=== PATIENT | female | born 1935 | race Caucasian/White ===

== ENCOUNTER 2020-03-08 08:58 | Emergency (ER) | payer MEDICARE, BC ==
[~2020-03-08] VITALS: Ht 149.9 cm; Wt 67.6 kg
--- NOTE | 2020-03-08 09:07 | Emergency Department Note ---
History of Present Illnes History of Present Illness History of Present Illness This is a 84 year old female with L LE swelling. Newly treated for Lung CA , patient reports having increasing swelling. Denies CP or SOB. Remote h/o of DVT with chronic L LE swelling. Historian: Patient Arrival Mode: Car Onset (how long ago): week(s) Location: L LE Radiation: Reports extremity Severity: moderate Onset quality: gradual Duration (how long): week(s) (1) Timing of current episode: constant Progression: worsening Context: Reports hx of DVT/PE; Denies recent illness, Denies recent surgery, Denies recent immobilization, Denies recent travel, Denies trauma/injury, Denies new medications, Denies non- compliance w/ medications, Denies other Relieving factors: none Exacerbating factors: none Associated symptoms: Denies denies other symptoms, Denies confusion, Denies chest pain, Denies cough, Denies diaphoresis, Denies fever/chills, Denies headaches, Denies loss of appetite, Denies malaise, Denies nausea/vomiting, Denies rash, Denies seizure, Denies shortness of breath, Denies syncope, Denies weakness, Denies other Treatments prior to arrival: none Past Medical/Family History Physician Review I have reviewed the patient's past medical and family history. Any updates have been documented here. Past Medical History Recent Fever: No Clinical Suspicion of Infectio: No New/Unexplained Change in Ment: No Other Medical History: Lung CA DVT Social History Smoking Cessation: Never Smoker Alcohol Use: None Any Illegal Drug Use: No Review of Systems Review of Systems Constitutional: Reports no symptoms EENTM: Reports no symptoms Cardiovascular: Reports no symptoms Respiratory: Reports no symptoms Gastrointestinal: Reports no symptoms Genitourinary: Reports no symptoms Musculoskeletal: Reports muscle pain Integumentary: Reports no symptoms Neurological: Reports no symptoms Psychological: Reports no symptoms Endocrine: Reports no symptoms Hematological/Lymphatic: Reports no symptoms Physical Exam Related Data Allergies: Coded Allergies: Iodine and Iodide Containing Produc (Verified Allergy, Severe, 03/08/20) codeine (Verified Allergy, Unknown, 03/08/20) morphine (Verified Allergy, Unknown, 03/08/20) Vital signs reviewed: Yes Physical Exam CONSTITUTIONAL Constitutional: Present well-developed, Present well-nourished HENT HENT: Present normocephalic, Present atraumatic, Present oropharynx clear/moist, Present nose normal HENT L/R: Present left ext ear normal, Present right ext ear normal EYES Eyes: Reports PERRL, Reports conjunctivae normal NECK Neck: Present ROM normal PULMONARY Pulmonary: Present effort normal, Present breath sounds normal CARDIOVASCULAR Cardiovascular: Present LLE edema GASTROINTESTINAL Abdominal: Present soft, Present nontender, Present bowel sounds normal GENITOURINARY Genitourinary: Present exam deferred SKIN Skin: Present warm, Present dry MUSCULOSKELETAL Musculoskeletal: Present ROM normal NEUROLOGICAL Neurological: Present alert, Present oriented x 3, Present no gross motor or sensory deficits PSYCHOLOGICAL Psychological: Present mood/affect normal, Present judgement normal Results Laboratory Lab results reviewed: Yes Imaging Imaging results reviewed: Yes Impressions VENOUS DUPLEX L LE NEG FOR DVT [place] [address] Patient Name: GEOVANNY ROBERTSON MR #: [id number] : 09/14/1981 Age/Sex: 38/F Req #: [id number] Adm Physician: Ordered by: ZEFERINO MOJICA DO Report #: [id number] Location: ER Room/Bed: Procedure: [id number] DX/CHEST 2 VIEWS Exam Date: 03/08/20 Exam Time: 729 REPORT STATUS: Signed Exam: CHEST 2 VIEWS Date: 03/08/2020 8:53 AM INDICATION: ^ORDER PLACED BY ^[id number] ^[id number] ^Y Comparison: None FINDINGS: Lines/Tubes:None Lungs:The lungs are well inflated. No focal consolidation or pulmonary edema. Pleura:No pleural effusion. No pneumothorax. Heart/Mediastinum:The cardiomediastinal silhouette is normal in size and contour. Bones/Soft Tissues: No acute osseous abnormality. Mild to moderate multilevel degenerative changes of the spine are noted. Upper abdomen: Unremarkable. IMPRESSION: Negative for acute intrathoracic process. Signed by: Kerrie Armstrong MD on 03/08/2020 8:53 AM Dictated By: KERRIE ARMSTRONG MD 2 Transcribed By: ANDI on 03/08/20852 COPY TO: ZEFERINO MOJICA DO~ Procedures 12 Lead ECG Interpretation ECG Interpretation : ECG: ECG 1 Medical Malpractice Paralegal: Interpreted by ED physician Date: Mar 08, 2020 Time: 09:43 Prior ECG tracings: reviewed Rhythm: sinus rhythm Rate: normal BPM: 70 QRS axis: normal ST segments normal: Yes T waves flattening: V1-V6 Clinical Impression: non-specific ECG Assessment & Plan Medical Decision Making MDM Diff Dx : CHF, Pulmonary embolus, DVT, hypoalbuminemia Assessment & Plan Final Impression: (1) Left leg swelling Depart Disposition: HOME, SELF-group home Meds Reported Medications Atorvastatin Calcium (LIPITOR) 20 Mg Tablet, 80 MG PO HS, TAB 03/08/20 Nitroglycerin (NITROSTAT) 0.4 Mg Tab.subl, 0.4 MG SL ONCE, TAB 03/08/20 Warfarin Sodium (WARFARIN SODIUM) 2 Mg Tablet, 2 MG PO DAILY, TAB 03/08/20 Levothyroxine Sodium (LEVOTHYROXINE SODIUM) 50 Mcg Tablet, 50 MCG PO DAILY, #30 TAB 03/08/20 Tramadol Hcl* (ULTRAM 50MG*) 50 Mg Tab, 50 MG PO DAILY, TAB 03/08/20 Alprazolam (ALPRAZOLAM) 0.25 Mg Tablet, 0.25 MG PO DAILY, #90 TAB 03/08/20 Amlodipine Besylate (AMLODIPINE BESYLATE) 5 Mg Tablet, 5 MG PO DAILY, #30 TAB 03/08/20 ZEFERINO MOJICA DO Mar 08, 2020 09:07
[2020-03-08] MEDS ORDERED: WARFARIN SODIUM2 MG PO (09:25)
[2020-03-08] MEDS ORDERED: ULTRAM 50MG50 MG PO (09:25)
[2020-03-08] MEDS ORDERED: ALPRAZOLAM0.25 MG PO (09:25)
[2020-03-08] MEDS ORDERED: LEVOTHYROXINE50 MCG PO (09:25)
[2020-03-08] MEDS ORDERED: AMLODIPINE BESYL5 MG PO (09:25)
[2020-03-08] MEDS ORDERED: NITROSTAT0.4 MG SL (09:25)
[2020-03-08] MEDS ORDERED: LIPITOR20 MG PO (09:25)
[2020-03-08] MEDS ORDERED: ASPIRIN 81 MG CHEW TAB PO ONE (09:33)
--- NOTE | 2020-03-08 09:35 | Diagnostic Imaging Report ---
TECHNIQUE: Frontal view of the chest. INDICATION: ^ERMD ORDER ^[id number] ^0915 ^Y COMPARISON: None DISCUSSION: Limited evaluation due to portable technique. Lines and hardware: None Heart and mediastinum: Cardiomediastinal silhouette is within normal limits. Trachea projects midline. Thoracic aorta is tortuous with calcification of the aortic knob. Mild perihilar vascular congestion is noted. Lungs and pleura: Linear opacities are noted in the retrocardiac effusion. Negative for focal lobar consolidation, large effusion or pneumothorax. Prominent interstitial markings are noted. Soft tissues and bones: No acute abnormality. IMPRESSION: Retrocardiac streaky opacities are likely related to atelectasis. Developing consolidation is difficult to exclude given lack of comparison imaging. Cardiomegaly and vascular congestion are accentuated by technique but can be seen in patients with fluid overload. Signed by: Christian Bragg MD on 03/08/2020 9:32 AM
--- NOTE | 2020-03-08 10:00 | NUR ---
unable to gain IV access, [facility] summ[facility] made aware. lab to come draw blood for lab work.
[2020-03-08 10:20] LABS: BASOPHILS % 0.6 % (0.0-1.0); EOSINOPHILS # (AUTO) 0.3 (0.0-0.4); EOSINOPHILS % 4.8 % (0.0-6.0); HEMATOCRIT 39.6 % (34.2-44.1); HEMOGLOBIN 12.2 g/dL (12.0-16.0); LYMPHOCYTES # (AUTO) 0.8 (1.0-3.2); LYMPHOCYTES % 12.6 % (18.0-39.1); MEAN CORPUSCULAR HEMOGLOBIN 29.5 pg (28-32); MEAN CORPUSCULAR HGB CONC 30.8 g/dL (31-35); MEAN CORPUSCULAR VOLUME 95.9 fL (81-99); MONOCYTES # (AUTO) 0.5 (0.2-0.8); MONOCYTES % 8.4 % (4.4-11.3); NEUTROPHILS # (AUTO) 4.7 (2.1-6.9); NEUTROPHILS % 73.1 % (38.7-80.0); PLATELET COUNT 301 x10e3/uL (140-360); RED BLOOD COUNT 4.13 x10e6/uL (3.6-5.1)
[2020-03-08 10:38] LABS: ALANINE AMINOTRANSFERASE 15 IU/L (0-55); ALBUMIN 3.3 g/dL (3.5-5.0); ALKALINE PHOSPHATASE 93 IU/L (40-150); ANION GAP 11.6 mmol/L (8-16); BLOOD UREA NITROGEN 9 mg/dL (7-26); BUN/CREATININE RATIO 12 (6-25); CALCIUM 8.2 mg/dL (8.4-10.2); CARBON DIOXIDE 27 mmol/L (22-29); CHLORIDE 106 mmol/L (98-107); CREATINE KINASE 38 IU/L (29-168); CREATININE, SERUM 0.75 mg/dL (0.57-1.11); EST GLOMERULAR FILTRATION RATE > 60 ML/MIN (60-); GLUCOSE 98 mg/dL (74-118); POTASSIUM 3.6 mmol/L (3.5-5.1); SODIUM 141 mmol/L (136-145)
== END 2020-03-08 12:03 | disposition home or self-care (01) ==
LOC: ER 09:08
DX: R60.9 Edema, unspecified (principal); M79.89 Other specified soft tissue disorders; C34.90 Malignant neoplasm of unspecified part of unspecified bronchus or lung; Z86.718 Personal history of other venous thrombosis and embolism
CPT/HCPCS: 36415; 71045; 80053; 82550; 82553; 83880; 84484; 85025; 93005; 93971; 99284

== ENCOUNTER → 2020-06-03 | Outpatient (CLI) | payer MEDICARE, BC ==
[~2020-06-03] MED LIST: ALPRAZOLAM0.25 MG PO; AMLODIPINE BESYL5 MG PO; LEVOTHYROXINE50 MCG PO; LIPITOR20 MG PO; NITROSTAT0.4 MG SL; ULTRAM 50MG50 MG PO; WARFARIN SODIUM2 MG PO
== END ==
LOC: NM 11:32
PROVIDERS: ATTEND Radiology Body Imaging
DX: M54.6 Pain in thoracic spine (principal); C34.90 Malignant neoplasm of unspecified part of unspecified bronchus or lung
CPT/HCPCS: 78306; A9503